=== PATIENT | male | born 1950 | race Caucasian/White ===

== ENCOUNTER 2024-04-17 18:30 | Inpatient (IN) ==
[2024-04-17] MEDS: 0.9 % SODIUM CHLORIDE 500 ML IV ONE ×2 (19:20→20:44)
[2024-04-17] MEDS: PANTOPRAZOLE 40 MG VIAL IV ONE (19:20)
[2024-04-17] MEDS: CEFEPIME 2 GM VIAL IV ONE (19:20)
[2024-04-17 19:25] LABS: Basophils # (Auto) 0.02 K/mcL (0.00-0.30); Basophils % (Auto) 0.2 % (0.0-2.0); Eosinophils # (Auto) 0.07 K/mcL (0.00-0.70); Eosinophils % (Auto) 0.7 % (0.0-7.0); Hematocrit 33.6 % (40.1-51.0); Hemoglobin 10.5 g/dL (13.7-17.5); Mean Cell Volume 89.4 fL (80.0-100.0); Mean Corpuscular HGB Conc 31.3 g/dL (31.0-36.0); Mean Platelet Volume 11.2 fL (8.8-12.5); Monocytes # (Auto) 0.84 K/mcL (0.10-0.90); Monocytes % (Auto) 8.3 % (1.0-12.0); Neutrophils % (Auto) 85.5 % (38.0-78.0); Platelet Count 219 K/mcL (140-440); RBC 3.76 M/mcL (4.63-6.08); Red Cell Distribution Width 19.9 % (11.5-14.5); WBC 10.1 K/mcL (4.5-11.0)
[2024-04-17 19:46] LABS: ALT/SGPT 25 U/L (<40); AST/SGOT 38 U/L (<40); Albumin 3.4 gm/dL (3.2-5.2); Alkaline Phosphatase 109 U/L (39-117); Bilirubin,Total 1.1 mg/dL (0.1-1.0); Blood Urea Nitrogen 20 mg/dL (8-23); Calcium 9.3 mg/dL (8.6-10.4); Carbon Dioxide 24 mmol/L (22-30); Chloride 98 mmol/L (96-108); Globulin 3.4 gm/dL (2.2-3.7); Glomerular Filtration Rate 59; Glucose 179 mg/dL (70-105); INR 2.3 (0.9-1.1); Potassium 4.8 mmol/L (3.3-5.1); Prothrombin Time 25.9 sec (11.9-14.5); Sodium 134 mmol/L (133-145)
[2024-04-17 19:54] LABS: Appearance,Urine Turbid (Clear); Bacteria,Urine Mod /hpf (0); Bilirubin,Urine Negative (Negative); Color,Urine Yellow; Glucose,Urine (UA) Negative (Negative); Ketones,Urine Negative (Negative); Leukocyte Esterase,Urine Moderate /uL (Negative); Nitrate,Urine Negative (Negative); Protein,Urine 100 mg/dL (Negative); Urine Blood Moderate ery/mcL (Negative); Urine RBC 25 /hpf (0-3); Urine Squamous Epithelial Cell 0 /hpf (0-4); Urine WBC > 182 /hpf (0-4); Urobilinogen,Urine Normal
[2024-04-17] MEDS: METOPROLOL TARTRATE 5 MG/5 ML VIAL IV ONE (19:54)
[2024-04-17] MEDS: ACETAMINOPHEN 1,000 MG/100 ML BAG IV ONE (20:18)
[2024-04-17] MEDS: MEROPENEM 1 GM in 0.9 % SODIUM CHLORIDE 50 ML IV SCH (20:34)
[2024-04-17 21:23] LABS: Anisocytosis 2+ (None Seen); Band Neutrophils % 10 % (0-10); Eosinophils % (Manual) 1 % (0-7); Hypochromasia 1+ (None Seen); Lymphocytes % 2 % (15-49); Monocytes % (Manual) 6 % (1-12); Platelet Estimate NORMAL (Normal); RBC Morphology ABNORMAL (Normal); Segmented Neutrophils % 81 % (38-78)
[2024-04-17] MEDS: NOREPINEPHRINE 250 ML IV ONE (21:30)
[2024-04-17] MEDS: NOREPINEPHRINE 250 ML IV SCH (21:36)
[2024-04-17] MEDS: 0.9 % SODIUM CHLORIDE 250 ML IV SCH (21:45)
[2024-04-17] MEDS ORDERED: POTASSIUM CHLORIDE 20 MEQ TABLET PO PRN ×2 (22:35)
[2024-04-17] MEDS ORDERED: DEXTROSE 31 GM ORAL.SUSP PO PRN (22:35)
[2024-04-17] MEDS ORDERED: MAGNESIUM SULFATE 2 GM/50 ML BAG IV PRN (22:35)
[2024-04-17] MEDS ORDERED: IPRATROPIUM/ALBUTEROL 3 ML AMPUL.NEB NEB PRN (22:35)
[2024-04-17] MEDS ORDERED: POLYETHYLENE GLYCOL 3350 17 GM PACKET PO PRN (22:35)
[2024-04-17] MEDS ORDERED: SENNOSIDES 1 TABLET PO PRN (22:35)
[2024-04-17] MEDS ORDERED: POTASSIUM CHLORIDE 40 MEQ in DEXTROSE 5% IN WATER 500 ML IV PRN (22:35)
[2024-04-17] MEDS ORDERED: ACETAMINOPHEN 160 MG/5 ML ORAL.SOL PO PRN (22:35)
[2024-04-17] MEDS ORDERED: DEXTROSE 50% 50 ML VIAL IV PRN (22:35)
[2024-04-17] MEDS: DOCUSATE SODIUM 100 MG CAPSULE PO SCH (22:55)
[2024-04-17] MEDS: INSULIN LISPRO 1 UNIT/0.01 ML UNIT SQ SCH (22:58)
[2024-04-17] MEDS: INSULIN LISPRO 1 UNIT/0.01 ML UNIT SQ ONE (23:46)
[2024-04-18] MEDS: METOPROLOL TARTRATE 5 MG/5 ML VIAL IV PRN (04:03)
[2024-04-18] MEDS: 0.9 % SODIUM CHLORIDE 10 ML SYRINGE IV SCH (04:04)
[2024-04-18] MEDS: METOPROLOL TARTRATE 5 MG/5 ML VIAL IV ONE ×2 (04:10→05:50)
[2024-04-18] MEDS: ACETAMINOPHEN 325 MG TABLET PO PRN (04:34)
[2024-04-18] MEDS: ACETAMINOPHEN 325 MG TABLET PO ONE (04:37)
[2024-04-18 06:47] LABS: Basophils # (Auto) 0.05 K/mcL (0.00-0.30); Basophils % (Auto) 0.5 % (0.0-2.0); Eosinophils # (Auto) 0.07 K/mcL (0.00-0.70); Eosinophils % (Auto) 0.6 % (0.0-7.0); Hematocrit 36.9 % (40.1-51.0); Hemoglobin 11.4 g/dL (13.7-17.5); Lymphocytes # (Auto) 0.75 K/mcL (1.50-4.80); Lymphocytes % (Auto) 6.9 % (15.5-49.0); Mean Cell Volume 90.4 fL (80.0-100.0); Mean Corpuscular HGB Conc 30.9 g/dL (31.0-36.0); Mean Platelet Volume 11.7 fL (8.8-12.5); Monocytes # (Auto) 0.93 K/mcL (0.10-0.90); Monocytes % (Auto) 8.6 % (1.0-12.0); Neutrophils % (Auto) 83.1 % (38.0-78.0); Platelet Count 228 K/mcL (140-440); RBC 4.08 M/mcL (4.63-6.08); Red Cell Distribution Width 20.2 % (11.5-14.5); WBC 10.8 K/mcL (4.5-11.0)
[2024-04-18 07:09] LABS: ALT/SGPT 23 U/L (<40); AST/SGOT 31 U/L (<40); Albumin 3.4 gm/dL (3.2-5.2); Albumin/Globulin Ratio 0.9 (1.0-2.3); Alkaline Phosphatase 109 U/L (39-117); Bilirubin,Direct 0.8 mg/dL (<0.3); Bilirubin,Total 1.5 mg/dL (0.1-1.0); Blood Urea Nitrogen 19 mg/dL (8-23); Calcium 9.4 mg/dL (8.6-10.4); Carbon Dioxide 26 mmol/L (22-30); Chloride 99 mmol/L (96-108); Globulin 3.6 gm/dL (2.2-3.7); Glomerular Filtration Rate 65; Glucose 142 mg/dL (70-105); Lactate Dehydrogenase 264 U/L (135-225); Phosphorous 3.2 mg/dL (2.5-4.5); Potassium 4.6 mmol/L (3.3-5.1); Sodium 136 mmol/L (133-145); Triglycerides 56 mg/dL (<150); Uric Acid 5.1 mg/dL (2.5-8.0)
[2024-04-18] MEDS ORDERED: BISACODYL 10 MG SUPP.RECT PR PRN (07:43)
[2024-04-18] MEDS ORDERED: MAGNESIUM HYDROXIDE 30 ML ORAL.SUSP PO PRN (07:43)
[2024-04-18] MEDS ORDERED: FLEETS ADULT 1 DOSE ENEMA PR PRN (07:43)
[2024-04-18] MEDS ORDERED: NALOXONE HCL 4 MG NASAL (PP) NS SCH (07:45)
[2024-04-18] MEDS: FUROSEMIDE 40 MG/4 ML VIAL IV ONE (09:00)
[2024-04-18] MEDS: DULoxetine 30 MG CAPSULE PO SCH (09:38)
[2024-04-18] MEDS: APIXABAN 5 MG TABLET PO SCH (09:43)
[2024-04-18] MEDS: ALLOPURINOL 100 MG TABLET PO SCH (09:43)
[2024-04-18] MEDS: TAMSULOSIN 0.4 MG CAPSULE PO SCH (09:43)
[2024-04-18] MEDS ORDERED: POTASSIUM CHLORIDE 20 MEQ TABLET PO PRN ×2 (11:23→11:27)
[2024-04-18] MEDS: PREGABALIN 75 MG CAPSULE PO SCH (15:49)
[2024-04-18] MEDS: LACTULOSE 20 GM/30 ML ORAL.SOL PO SCH (15:49)
[2024-04-18] MEDS: oxyCODONE IR 5 MG TABLET PO PRN (16:58)
[2024-04-18] MEDS: LACTOBACILLUS 1 CAPSULE PO SCH (20:40)
[2024-04-18] MEDS: MELATONIN 3 MG TABLET PO SCH (20:41)
[2024-04-18] MEDS: METOPROLOL TARTRATE 25 MG TABLET PO SCH (20:41)
[2024-04-18] MEDS: ATORVASTATIN 40 MG TABLET PO SCH (20:41)
[2024-04-19 06:21] LABS: ALT/SGPT 18 U/L (<40); AST/SGOT 32 U/L (<40); Alkaline Phosphatase 88 U/L (39-117); Bilirubin,Direct 0.7 mg/dL (<0.3); Bilirubin,Total 1.1 mg/dL (0.1-1.0); Blood Urea Nitrogen 21 mg/dL (8-23); Calcium 8.8 mg/dL (8.6-10.4); Carbon Dioxide 26 mmol/L (22-30); Chloride 99 mmol/L (96-108); Glomerular Filtration Rate 73; Glucose 140 mg/dL (70-105); Lactate Dehydrogenase 245 U/L (135-225); Phosphorous 3.2 mg/dL (2.5-4.5); Potassium 3.7 mmol/L (3.3-5.1); Sodium 135 mmol/L (133-145); Triglycerides 60 mg/dL (<150); Uric Acid 4.9 mg/dL (2.5-8.0)
[2024-04-19] MEDS: PANTOPRAZOLE 40 MG TABLET PO SCH (07:21)
[2024-04-19] MEDS ORDERED: N ACETYLCYSTEINE PO SCH (09:00)
[2024-04-19] MEDS: ASPIRIN 81 MG TAB.CHEW PO SCH (09:01)
[2024-04-19] MEDS: THIAMINE 100 MG TABLET PO SCH (09:01)
[2024-04-19] MEDS: OXYBUTYNIN CHLORIDE 5 MG TABLET PO SCH (20:34)
[2024-04-19] MEDS: PREGABALIN 75 MG CAPSULE PO SCH (21:35)
[2024-04-20 06:13] LABS: Basophils # (Auto) 0.04 K/mcL (0.00-0.30); Basophils % (Auto) 0.6 % (0.0-2.0); Eosinophils % (Auto) 4.2 % (0.0-7.0); Hemoglobin 9.6 g/dL (13.7-17.5); Lymphocytes # (Auto) 0.76 K/mcL (1.50-4.80); Lymphocytes % (Auto) 10.7 % (15.5-49.0); Mean Cell Volume 90.6 fL (80.0-100.0); Mean Platelet Volume 9.8 fL (8.8-12.5); Monocytes # (Auto) 0.67 K/mcL (0.10-0.90); Monocytes % (Auto) 9.4 % (1.0-12.0); Neutrophils % (Auto) 74.7 % (38.0-78.0); Platelet Count 181 K/mcL (140-440); RBC 3.42 M/mcL (4.63-6.08); Red Cell Distribution Width 19.8 % (11.5-14.5); WBC 7.1 K/mcL (4.5-11.0)
[2024-04-20 06:22] LABS: ALT/SGPT 18 U/L (<40); AST/SGOT 36 U/L (<40); Albumin 2.9 gm/dL (3.2-5.2); Albumin/Globulin Ratio 0.9 (1.0-2.3); Alkaline Phosphatase 89 U/L (39-117); Bilirubin,Direct 0.5 mg/dL (<0.3); Bilirubin,Total 0.8 mg/dL (0.1-1.0); Blood Urea Nitrogen 20 mg/dL (8-23); Calcium 8.7 mg/dL (8.6-10.4); Carbon Dioxide 28 mmol/L (22-30); Chloride 100 mmol/L (96-108); Globulin 3.1 gm/dL (2.2-3.7); Glomerular Filtration Rate 73; Glucose 201 mg/dL (70-105); Lactate Dehydrogenase 240 U/L (135-225); Phosphorous 2.7 mg/dL (2.5-4.5); Sodium 135 mmol/L (133-145); Triglycerides 76 mg/dL (<150); Uric Acid 4.6 mg/dL (2.5-8.0)
[2024-04-20] MEDS: FUROSEMIDE 40 MG/4 ML VIAL IV ONE (08:52)
[2024-04-20] MEDS: FUROSEMIDE 20 MG TABLET PO SCH (08:54)
[2024-04-20] MEDS ORDERED: PREGABALIN 75 MG CAPSULE PO SCH (09:00)
[2024-04-20] MEDS: PREGABALIN 75 MG CAPSULE PO SCH (20:49)
[2024-04-22 07:05] LABS: Hematocrit 35.1 % (40.1-51.0); Hemoglobin 11.1 g/dL (13.7-17.5)
[2024-04-22 09:02] LABS: ALT/SGPT 26 U/L (<40); AST/SGOT 46 U/L (<40); Albumin 3.4 gm/dL (3.2-5.2); Albumin/Globulin Ratio 0.9 (1.0-2.3); Alkaline Phosphatase 113 U/L (39-117); Bilirubin,Direct 0.6 mg/dL (<0.3); Bilirubin,Total 1.1 mg/dL (0.1-1.0); Blood Urea Nitrogen 22 mg/dL (8-23); Calcium 8.9 mg/dL (8.6-10.4); Carbon Dioxide 28 mmol/L (22-30); Chloride 96 mmol/L (96-108); Globulin 3.7 gm/dL (2.2-3.7); Glomerular Filtration Rate 83; Glucose 165 mg/dL (70-105); Lactate Dehydrogenase 317 U/L (135-225); Phosphorous 3.8 mg/dL (2.5-4.5); Potassium 4.6 mmol/L (3.3-5.1); Sodium 136 mmol/L (133-145); Triglycerides 76 mg/dL (<150); Uric Acid 4.1 mg/dL (2.5-8.0)
[2024-04-22] MEDS ORDERED: IOPAMIDOL 100 ML BOTTLE IV ONE (09:56)
== END 2024-04-22 11:55 | disposition short-term general hospital (02) | DRG 871 ==
LOC: ED 18:30 → ICU 22:30
PROVIDERS: ADMIT Internal Medicine; ATTEND Internal Medicine